=== PATIENT | female | born 1980 | race Two or more races ===

== ENCOUNTER 2024-05-31 13:53 | Outpatient (AMB) | payer BC, SELFPAY ==
[2024-05-31 14:00] VITALS: BP 108/69; PULSE 65; RESP 12; TEMP 36.6; O2SAT 99; BMI 32.5
--- NOTE | 2024-05-31 14:00 | AMB.GYNCLNOT ---
Vital Signs 05/31/24 14:00 Height 1.6 m Height Method Stated Weight 83.461 kg Weight Measurement Method Standing Scale BMI 32.5 BP 108/69 Blood Pressure Source Automatic Cuff Blood Pressure Location Left Upper Arm Position Sitting Respiration 12 Pulse 65 Pulse Source Monitor Temp 97.9 F Temp Source Oral Pulse Oximetry (%) 99 Oxygen Delivery Method Room Air Allergies/Home Meds Allergies & Medications Allergies No Known Allergies Allergy (Verified 05/31/24 14:01) Medication Reconciliation No Known Home Medications 05/31/24 [History Confirmed 05/31/24] Intake Visit Data Collection New Patient or Established: Established Patient (seen at [facility] within 3 years) Reason for Visit:: Discuss lab results Seen by Clinical Staff ONLY (RN/MA): No Sewer Digger Required: No Do You Feel Safe at Home: Yes Authorities Contacted: N/A PCP or OBGYN visit in last 3 months: No Hx Now: No Are you currently on any form of Control: Yes Last menstrual period: 05/26/24 Pain Present Currently: No Pain Scale Used: Motta-Escobar/Numerical Pain scale:: 0 Smoking Status Smoking Status: Never smoker Registered Massage Therapist history Registered Massage Therapist History Menstrual regularity: regular Flow: normal Monthly: Yes How many days does period last: 3 Age at menarche: 12 Menopausal: No Currently sexually active: Yes Questionnaires Covid-19 Vaccine Questionnaire Has patient been vacinated for Covid-19 Have you been vacinated for Covid-19: Yes Date of last Covid Vaccine or Booster?: 01/19/21 PHQ-9 PHQ-2 Over the last 2 weeks, how often have you been bothered by any of the following problems? 1. Little interest or pleasure in doing things: not at all 2. Feeling down, depressed, or hopeless: not at all Total score: 0 PHQ-9 3. Trouble falling or staying asleep, or sleeping too much: Not at all 4. Feeling tired or having little energy: Not at all 5. Poor appetite or overeating: Not at all 6. Feeling bad about yourself - or that you are a failure or have let yourself or your family down: Not at all 7. Trouble concentrating on things, such as reading the newspaper or watching television: Not at all 8. Moving or speaking so slowly that other people could have noticed? - Or the opposite - being so fidgety or restless that you have been moving around a lot more than usual: not at all 9. Thoughts that you would be better off or of hurting yourself in some way: Not at all Total score: 0 Source: Developed by Drs. Terrence Harper, Alondra Martinez, Ayan Mcpherson and colleagues, with an educational floresita from [employer]. Depression screen completed yes Social History Living Situation History Marital Status: Lives With: Family Housing: House Tobacco History Smoking Status: Never smoker Second Hand Smoke Exposure: Yes Alcohol History Alcohol Intake: Never Substance Use History Substance Use: no Domestic Abuse History Do You Feel Safe at Home: Yes Past Medical History Past Medical History Have you ever been diagnosed with any of the following: Neurological Problems Cerebrovascular Accident (CVA): No Transient Ischemic Attacks (TIA): No Dementia: No Alzheimer's Disease: No Cardiology Problems Myocardial Infarction: No Cardiac Arrhythmia: No Atrial Fibrillation: No Angina: No Heart Murmur: No Coronary Artery Disease: No Respiratory Problems Chronic Obstructive Pulmonary Disease (COPD): No Asthma: No Bronchitis: No Stomache/Intestinal Problems Liver Cancer: No Hepatitis: No Cirrhosis: No Pancreatic Cancer: No Genital/Urinary Problems Chronic Kidney Disease: No Renal Disease: No Kidney Stones: No Polycystic Kidney Disease: No Reproductive Problems Breast Cancer: No Endometriosis: No Fibroids: No Genital Herpes: No Musculoskeletal Problems Muscular Dystrophy: No Myasthenia Gravis: No Marfan's Syndrome: No Bone Cancer: No Arthritis: No Head,Eye,Nose,Throat Problems Cataracts: No Glaucoma: No Blind: No Endocrine Problems Diabetes Mellitus Type 1: No Diabetes Mellitus Type 2: No Hypoglycemia: No Monica's Syndrome: No Ringgold's Disease: No Hyperthyroidism: No Hypothyroidism: No Thyroid Cancer: No Blood Problems Anemia: No Leukemia: No Hemophilia: No Thalassemia: No Sickle Cell Disease: No Clotting Problems: No Psychologic Problems Schizophrenia: No Recreational Drug Use: No Bipolar Disorder: No Depression: No Anxiety: No Other Problems Hospitalization: No Autoimmune Disease: No Down Syndrome: No Autism: No Surgical History Angioplasty: No Appendectomy: No Bariatric Surgery: No Breast Surgery: No History of Present Illness HPI Narrative Patient presents for follow-up after a previous episode of heavy bleeding. She reports that her menstrual cycle has since regularized, with her most recent period lasting 3 days. This is her second consecutive cycle following a normal pattern. Laboratory tests, including FSH at 3.5 and anti-M?llerian hormone (AMH) at 0.16, were performed. FSH results indicate she is still cycling and not entering menopause. The AMH test reveals a low ovarian reserve, suggesting that response to ovarian stimulation may not be optimal and she may require for successful Patient was advised to consult a fertility specialist for further evaluation. Additionally, she confirmed a negative pap smear result in December 2022, with the next one due in 2027. Review of Systems Review of Systems Systems Reviewed: All systems reviewed, normal except as documented Exam General Limitations: no limitations General Appearance: alert, in no apparent distress, comfortable, cooperative, healthy appearing, well developed and well groomed Head Head exam: atraumatic, normocephalic and normal inspection Eye Eye exam: Present normal appearance, PERRL and EOMI ENT ENT exam: Present normal exam, normal oropharynx and mucous membranes moist Neck Neck exam: Present normal inspection, full ROM and trachea midline Chest Chest inspection: Present normal inspection and symmetric chest wall rise Resp Respiratory exam: Present normal lung sounds bilaterally Abdominal Abdominal exam: Present soft and normal bowel sounds External exam: Present normal external exam Speculum exam: Present normal speculum exam Extremities Extremities exam: Present normal inspection Psych Psychiatric exam: Present normal affect and normal mood Skin Skin exam: Present warm, dry, intact and normal color Assessment & Plan Diagnosis / Problem List (1) Abnormal uterine and vaginal bleeding, unspecified: Status: Acute (2) Female infertility, unspecified: Status: Acute Plan: - AMH test results indicate significantly low ovarian reserve. - IVF suggested for successful . - Current AMH levels show some ovarian reserve, though significantly reduced. - Referral to fertility specialist (Dr. Malcolm Olivarez) for consultation. - Optimize fertility potential through specialist care. (3) Premenopause menorrhagia: Status: Acute Plan: - Resolution of previous heavy bleeding episode. - Menstrual cycle returned to normal pattern, last two cycles regular. - FSH levels indicate patient still cycling, not in menopause. - Hormones within normal range. - No intervention required as bleeding has regularized. - Resume routine activities including running. - Monitor for any recurrence of irregular bleeding. (4) Cervical cancer screening: Status: Acute Plan: - Last Pap smear on December 31, 2022, negative for Pap and HPV. - Next Pap smear due in 2027. 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
== END 2024-05-31 14:08 | disposition home or self-care (01) ==
LOC: HODSOBC 13:53
PROVIDERS: Supervising Provider Obstetrics & Gynecology; Visit Provider Obstetrics & Gynecology
DX: N92.4 Excessive bleeding in the premenopausal period (principal); N97.9 Female infertility, unspecified
CPT/HCPCS: 99203; 99213; G0463

== ENCOUNTER → 2024-07-21 | Outpatient (CLI) | payer BC, SELFPAY ==
--- NOTE | 2024-07-21 10:00 | XR_ITS ---
Examination: Breast ultrasound, unilateral, right complete Date and time of exam: July 21, 2024 1018 hours INDICATIONS: History breast cystic disease, mammogram February 01, 2024 18 mm mass upper outer right breast Technique: Real-time flynn scale ultrasonographic imaging performed right breast including all 4 quadrants as well as nipple retroareolar and axillary region. Findings: Multiple benign cysts, the largest in the 9:00 position 16 x 13 mm Retroareolar nodule lobular margins 13 x 13 mm Retroareolar nodule lobular margins 10 x 11 mm IMPRESSION: Thyroid category 3: Probably benign findings One additional 6 month right breast sonogram follow-up is needed to document stability of retroareolar solid nodules described above
== END | disposition home or self-care (01) ==
PROVIDERS: PCP Nurse Practitioner Family; Referring Provider Nurse Practitioner Family; Visit Provider Nurse Practitioner Family
DX: N63.41 Unspecified lump in right breast, subareolar (principal); N60.01 Solitary cyst of right breast
CPT/HCPCS: 76641

== ENCOUNTER → 2025-02-20 | Outpatient (CLI) | payer BC, SELFPAY ==
--- NOTE | 2025-02-20 10:15 | XR_ITS ---
Examination: Breast ultrasound, unilateral, right Date and time of exam: February 20, 2025, 10:30 a.m. INDICATIONS: Right breast trauma, February 01, 2024, 18 mm circumscribed nodule retroareolar right breast Technique: Real-time flynn scale ultrasonographic imaging performed right breast including all 4 quadrants as well as nipple retroareolar and axillary region. Findings: Multiple benign cysts Retroareolar solid nodules 10 x 9 mm, 13 x 12 IMPRESSION: BI-RADS Category 3: Probably benign findings 1 additional 6-month right breast sonogram follow-up is needed to document stability of nodules described above
--- NOTE | 2025-02-20 11:15 | XR_ITS ---
Examination: Diagnostic digital mammography, bilateral Computer aided detection 3-D breast Tomosynthesis, bilateral Date and time of exam: February 20, 2025, 1046 hours INDICATIONS: Patient states right breast lump this month, mammogram February 01, 2000 2418 mm circumscribed mass upper outer right breast Technique: Nonmagnified MLO, CC views of the breasts to been obtained, reconstructed from 3-D Tomosynthesis images. R2 computer aided detection program utilized for evaluation of suspicious masses and/or abnormal calcifications. 3-D Tomosynthesis images obtained. Findings: The breasts are heterogeneously dense, which may obscure small masses No suspicious right breast mass is noted 14 mm nodule upper left breast MLO view posterior depth, 9.2 cm from the nipple Impression: BI-RADS Category 0: Incomplete: Need additional imaging evaluation Recommend follow-up spot tomographic views upper outer quadrant left breast to assess the 14 mm nodule upper left breast on the current MLO view. Recommend left breast sonography follow-up
== END | disposition home or self-care (01) ==
PROVIDERS: PCP Nurse Practitioner Family; Referring Provider Nurse Practitioner Family; Visit Provider Nurse Practitioner Family
DX: R92.8 Other abnormal and inconclusive findings on diagnostic imaging of breast (principal); N63.41 Unspecified lump in right breast, subareolar; N63.20 Unspecified lump in the left breast, unspecified quadrant
CPT/HCPCS: 76641; 77062; 77066; G0279